=== PATIENT | male | born 1950 | race Caucasian/White ===

== ENCOUNTER 2019-11-09 10:59 | Outpatient (CLI) | payer MEDICARE ==
[~2019-11-09 10:59] MED LIST: AMLO10TA4 PO; AMLO10TA8 PO; ASPI-496 PO; CITA20TA6 PO; CYAN1TAB29 PO; DISU250T2 PO; ESCI20TA10 PO; GABA600T PO; GABA600T7 PO; GLUC-88 PO; HYDR-3245 PO; LISI-170 PO; MULT-658 PO; OMEP-110 PO; SPIR25TA5 PO; SPIR50TA PO; TRAZ50TA66 PO; VITA1TAB19 PO; dandelion root PO; flaxseed oil PO; folic acid PO; vitamin d3 PO; vitamin e PO
[2019-11-09] MEDS ORDERED: Beet Root PO (12:02)
[2019-11-09] MEDS ORDERED: LEVO5TAB29 PO (12:02)
[2019-11-09] MEDS ORDERED: ELDE1CAP PO (12:02)
[2019-11-09] MEDS ORDERED: CINN500C2 PO (12:02)
[2019-11-09] MEDS ORDERED: AMLO5TAB4 PO (12:02)
[2019-11-09] MEDS ORDERED: DOCU-180 PO (12:02)
[2019-11-09] MEDS ORDERED: LACT1TAB13 PO (12:02)
[2019-11-09] MEDS ORDERED: TURM1CAP PO (12:02)
[2019-11-16] MEDS ORDERED: EVOL140P3 SQ (09:27)
== END 2019-11-09 23:59 | disposition home or self-care (01) ==
LOC: STAR 10:59
PROVIDERS: ATTEND Surgery Vascular Surgery
DX: Z01.810 Encounter for preprocedural cardiovascular examination (principal); I71.4 Abdominal aortic aneurysm, without rupture
CPT/HCPCS: 93005